=== PATIENT | male | born 1990 | race Caucasian/White ===

== ENCOUNTER 2022-11-24 15:15 | Emergency (ER) | payer OTHER ==
[~2022-11-24] VITALS: Ht 172.7 cm; Wt 97.5 kg
[2022-11-24 16:00] VITALS: BP_SYST 120
[2022-11-24] MEDS ORDERED: ROBAC PO (16:40)
== END 2022-11-24 17:02 | disposition home or self-care (01) ==
LOC: SED 15:15
DX: J06.9 Acute upper respiratory infection, unspecified (principal); R05.9 Cough, unspecified; Z79.899 Other long term (current) drug therapy
CPT/HCPCS: 99283